=== PATIENT | female | born 1995 | race Caucasian/White ===

== ENCOUNTER 2018-11-04 10:24 | Emergency (ER) | payer BC ==
[~2018-11-04] VITALS: Ht 167.6 cm; Wt 65.9 kg
[2018-11-04] MEDS ORDERED: ORTHO TRI-CYCLE1 TA1 PO (10:33)
[2018-11-04 11:25] LABS: HEMATOCRIT 41.4 % (37.0-47.0); HEMOGLOBIN 13.9 g/dL (12.5-16.0); MEAN CELL VOLUME 88 fl (78-100); MEAN CORPUSCULAR HEMOGLOBIN 30 pg (27-31); MEAN CORPUSCULAR HGB CONC 34 g/dL (33-37); MEAN PLATELET VOLUME 9.6 fl (7.4-10.4); PLATELET COUNT 120 K/mm3 (130-400); RED CELL DISTRIBUTION WIDTH 12.7 % (11.5-14.5); WHITE BLOOD COUNT 11.7 K/mm3 (4.8-10.8)
[2018-11-04 11:37] LABS: CALCIUM 8.9 mg/dL (8.4-10.2); POTASSIUM 3.6 mmol/L (3.6-5.0); TOTAL PROTEIN 7.5 g/dL (6.3-8.2)
[2018-11-04 12:17] LABS: STREP SCREEN NEGATIVE (NEGATIVE)
[2018-11-04 12:33] LABS: BAND 3 % (0-10); NEUTROPHILS 18 % (42-75)
[2018-11-04 12:34] LABS: MONOCYTE 6 % (3-10)
[2018-11-04 12:35] LABS: LYMPHOCYTE 73 % (20-51)
[2018-11-04 17:25] VITALS: BP 122/80
== END 2018-11-04 16:58 | disposition home or self-care (01) ==
LOC: ED 10:24
PROVIDERS: Nurse Practitioner Primary Care
DX: J11.1 Influenza due to unidentified influenza virus with other respiratory manifestations (principal); N83.209 Unspecified ovarian cyst, unspecified side; Z88.2 Allergy status to sulfonamides; Z90.49 Acquired absence of other specified parts of digestive tract
CPT/HCPCS: J2550; J7030